=== PATIENT | male | born 1985 | race Caucasian/White ===

== ENCOUNTER 2016-12-08 15:13 | Emergency (ER) | payer OTHER ==
[~2016-12-08 15:13] MED LIST: ORUDIS75 M1 PO
== END 2016-12-08 15:15 | disposition home or self-care (01) ==
LOC: CFTX 15:13
DX: S93.401A Sprain of unspecified ligament of right ankle, initial encounter (principal); S93.402A Sprain of unspecified ligament of left ankle, initial encounter; L03.115 Cellulitis of right lower limb; I10 Essential (primary) hypertension; X58.XXXA Exposure to other specified factors, initial encounter
CPT/HCPCS: 29540; 99283